=== PATIENT | female | born 1925 | race Caucasian/White ===

== ENCOUNTER 2016-12-03 09:59 | Emergency (ER) | payer MEDICARE, OTHER ==
[~2016-12-03] VITALS: Ht 157.5 cm; Wt 65.9 kg
[2016-12-03] MEDS ORDERED: SODIUM CHLORIDE 0.9% 1,000 ML IV ONE (10:28)
[2016-12-03] MEDS ORDERED: SIMV40TA3 PO (10:49)
[2016-12-03] MEDS ORDERED: VITA150T PO (10:49)
[2016-12-03] MEDS ORDERED: CALC-72 PO (10:49)
[2016-12-03] MEDS ORDERED: BENA10TA2 PO (10:49)
[2016-12-03] MEDS ORDERED: GABA-826 PO (10:49)
[2016-12-03] MEDS ORDERED: TRIA1TAB3 PO (10:49)
[2016-12-03] MEDS ORDERED: DOXY25TA18 PO (10:49)
[2016-12-03] MEDS ORDERED: LANS30CA PO (10:49)
[2016-12-03] MEDS ORDERED: EZET10TA3 PO (10:49)
[2016-12-03] MEDS ORDERED: VIT1TABL34 PO (10:49)
[2016-12-03] MEDS ORDERED: CHOL400T38 PO (10:49)
[2016-12-03] MEDS ORDERED: UBID50TA3 PO (10:49)
[2016-12-03 11:09] LABS: BLOOD UREA NITROGEN 14 mg/dL (7-18)
[2016-12-03 11:13] LABS: IS PT STATUS REG ER OR PRE ER? YES
[2016-12-03 11:58] LABS: PATH.CAST-FLAG NOT PRESENT; SPERM-FLAG NOT PRESENT; SRC-FLAG NOT PRESENT; XTAL-FLAG NOT PRESENT; YLC-FLAG NOT PRESENT
[2016-12-03 13:45] VITALS: BP 139/61
== END 2016-12-03 13:47 | disposition home or self-care (01) ==
LOC: ED 13:37
DX: N30.00 Acute cystitis without hematuria (principal); E86.0 Dehydration; I10 Essential (primary) hypertension; E78.5 Hyperlipidemia, unspecified; K21.9 Gastro-esophageal reflux disease without esophagitis
CPT/HCPCS: 36415; 71010; 80048; 81001; 82040; 84484; 85025; 87077; 87086; 87186; 93005; 96360; 96361; 99285; J7030